=== PATIENT | male | born 1985 | race Hispanic/Latino ===

== ENCOUNTER 2018-03-16 10:38 | Outpatient (CLI) | payer OTHER, SELFPAY ==
--- NOTE | 2018-03-16 11:41 | RAD ---
LEFT ANKLE 3 VIEWS: HISTORY: A 32-year-old male with a history of left ankle pain following an injury, patient fell after being tr ipped this morning at work. There is some anterior and lateral soft tissue swelling. Mild degenerative changes with an inferior calcaneal plantar enthesophyte. No acute fracture or dislocation. IMPRESSION: Lateral soft tissue swelling. Mild degenerative changes. No acute fracture. POS: [facility]
== END 2018-03-16 10:39 | disposition home or self-care (01) ==
LOC: SCSRAD 10:38
PROVIDERS: ATTEND Family Medicine
DX: S99.912A Unspecified injury of left ankle, initial encounter (principal); M19.90 Unspecified osteoarthritis, unspecified site